=== PATIENT | male | born 1985 | race Caucasian/White ===

== ENCOUNTER → 2019-05-30 | Outpatient (CLI) | payer OTHER | LOC: CARDREHAB 12:01 | DX: G47.10 Hypersomnia, unspecified (principal); G47.8 Other sleep disorders; R53.83 Other fatigue ==

== ENCOUNTER → 2019-11-07 | Outpatient (CLI) | payer OTHER | LOC: LAB 07:21 | DX: R79.89 Other specified abnormal findings of blood chemistry (principal) ==

== ENCOUNTER 2023-08-31 14:41 | Outpatient (RCR) | payer BC ==
[~2023-08-31] VITALS: Ht 165.1 cm; Wt 90.0 kg
[2023-08-31 14:55] VITALS: BP 139/84
== END 2023-09-12 | disposition home or self-care (01) ==
LOC: AMSURD
DX: E23.0 Hypopituitarism (principal)
CPT/HCPCS: J1071

== ENCOUNTER 2023-09-21 14:51 | Outpatient (RCR) | payer BC ==
[~2023-09-21] VITALS: Ht 165.1 cm; Wt 90.0 kg
[2023-09-21 15:09] VITALS: BP 132/91
[2023-09-21] MEDS ORDERED: Testosterone Cyp in Oil 200 MG/ML 1 ML VIAL IM ONE (15:15)
[2023-10-14] MEDS ORDERED: TESTOSTERO200 MG/1 M IM (15:13)
== END 2023-10-13 | disposition home or self-care (01) ==
LOC: AMSURD
DX: E23.0 Hypopituitarism (principal)
CPT/HCPCS: J1071

== ENCOUNTER 2023-11-08 14:51 | Outpatient (RCR) | payer BC ==
[2023-10-14 15:08] VITALS: BP 154/92
[~2023-11-08] VITALS: Ht 165.1 cm; Wt 90.0 kg
[~2023-11-08 14:51] MED LIST: TESTOSTERO200 MG/1 M IM; Testosterone Cyp in Oil 200 MG/ML 1 ML VIAL IM SCH
[2023-11-08 15:14] VITALS: BP 144/87
[2023-11-08] MEDS ORDERED: Testosterone Cyp in Oil 200 MG/ML 1 ML VIAL IM SCH (15:30)
== END 2023-11-11 | disposition home or self-care (01) ==
LOC: AMSURD
DX: E23.0 Hypopituitarism (principal)
CPT/HCPCS: J1071

== ENCOUNTER 2024-01-24 14:56 | Outpatient (RCR) | payer BC ==
[~2024-01-24] VITALS: Ht 165.1 cm; Wt 90.0 kg
[~2024-01-24 14:56] MED LIST changes: -Testosterone Cyp in Oil 200 MG/ML 1 ML VIAL IM SCH
[2024-01-24] MEDS ORDERED: Testosterone Cyp in Oil 200 MG/ML 1 ML VIAL IM ONE (15:15)
[2024-01-24 15:19] VITALS: BP 134/90
== END 2024-02-11 ==
LOC: AMSURD
DX: E23.0 Hypopituitarism (principal)
CPT/HCPCS: J1071

== ENCOUNTER 2024-02-24 15:15 | Outpatient (RCR) | payer BC ==
[~2024-02-24] VITALS: Ht 165.1 cm; Wt 90.0 kg
[2024-02-24 15:34] VITALS: BP 132/75
[2024-02-24] MEDS ORDERED: Testosterone Cyp in Oil 200 MG/ML 1 ML VIAL IM ONE (15:45)
== END 2024-03-12 ==
LOC: AMSURD
DX: E23.0 Hypopituitarism (principal)
CPT/HCPCS: J1071

== ENCOUNTER 2024-06-01 13:01 | Outpatient (RCR) | payer BC ==
[~2024-06-01] VITALS: Ht 165.1 cm; Wt 90.0 kg
[2024-06-01 13:19] VITALS: BP 121/69
[2024-06-01] MEDS ORDERED: VOLTAREN 75 DR75 MG PO (13:23)
[2024-06-01] MEDS ORDERED: Testosterone Cyp in Oil 200 MG/ML 1 ML VIAL IM ONE (13:30)
== END 2024-06-12 | disposition home or self-care (01) ==
LOC: AMSURD
DX: Z51.81 Encounter for therapeutic drug level monitoring (principal); E23.0 Hypopituitarism
CPT/HCPCS: J1071

== ENCOUNTER → 2024-06-21 | Outpatient (CLI) | payer BC ==
[~2024-06-21] MED LIST changes: +VOLTAREN 75 DR75 MG PO
[2024-06-21 08:02] LABS: BASO # 0.02 K/mm3 (0.02-0.10); EOS # 0.11 K/mm3 (0.04-0.40); HEMOGLOBIN 16.1 g/dL (13.5-18.0); LYMPH# 2.19 K/mm3 (1.50-4.00); MEAN CELL VOLUME 84 fl (78-100); MEAN CORPUSCULAR HEMOGLOBIN 29 pg (27-31); MEAN CORPUSCULAR HGB CONC 35 g/dL (33-37); MONO # 0.39 K/mm3 (0.20-0.80); NEU # 2.86 K/mm3 (1.40-6.50); PLATELET COUNT 227 K/mm3 (130-400); RED BLOOD COUNT 5.48 M/mm3 (4.20-5.60); RED CELL DISTRIBUTION WIDTH 13.1 % (11.5-14.5); WHITE BLOOD COUNT 5.6 K/mm3 (4.8-10.8)
[2024-06-21 08:10] LABS: ALBUMIN 4.6 g/dL (3.5-5.0)
[2024-06-21 08:12] LABS: TOTAL PROTEIN 7.1 g/dL (6.4-8.3)
[2024-06-21 08:14] LABS: TOTAL BILIRUBIN 0.5 mg/dL (0.2-1.2)
== END ==
LOC: LAB 07:47
PROVIDERS: Internal Medicine
DX: Z12.5 Encounter for screening for malignant neoplasm of prostate (principal); Z00.00 Encounter for general adult medical examination without abnormal findings

== ENCOUNTER → 2024-07-05 | Outpatient (CLI) | payer BC ==
[~2024-07-05] VITALS: Ht 165.1 cm; Wt 90.0 kg
[~2024-07-05] MED LIST changes: +Testosterone Cyp in Oil 200 MG/ML 1 ML VIAL IM ONE
[2024-07-05 15:38] VITALS: BP 118/80
== END ==
LOC: AMSURD 15:21
DX: E23.0 Hypopituitarism (principal)
CPT/HCPCS: J1071

== ENCOUNTER → 2024-08-16 | Outpatient (CLI) | payer BC ==
[~2024-08-16] VITALS: Ht 165.1 cm; Wt 90.9 kg
[2024-08-16 15:17] VITALS: BP 136/81
== END ==
LOC: AMSURD 14:53
DX: E23.0 Hypopituitarism (principal); Z79.899 Other long term (current) drug therapy
CPT/HCPCS: J1071

== ENCOUNTER → 2024-09-07 | Outpatient (CLI) | payer BC ==
[~2024-09-07] VITALS: Ht 165.1 cm; Wt 90.9 kg
[~2024-09-07] MED LIST changes: -Testosterone Cyp in Oil 200 MG/ML 1 ML VIAL IM ONE; +Testosterone Cyp in Oil 200 MG/ML 1 ML VIAL IM SCH
[2024-09-07 09:16] VITALS: BP 130/86
== END ==
LOC: AMSURD 09:07
DX: E23.0 Hypopituitarism (principal)
CPT/HCPCS: J1071